=== PATIENT | male | born 1940 | race Caucasian/White ===

== ENCOUNTER 2024-02-20 20:04 | Inpatient (IN) | payer BC ==
[~2024-02-20] VITALS: Ht 182.9 cm; Wt 109.3 kg
[2024-02-20] MEDS ORDERED: LACT1CAP61 PO (20:27)
[2024-02-20] MEDS ORDERED: METO-357 PO (20:27)
[2024-02-20] MEDS ORDERED: FOLI1TAB27 PO (20:27)
[2024-02-20] MEDS ORDERED: LOPE-195 PO (20:27)
[2024-02-20] MEDS ORDERED: HYDR-4077 PO (20:27)
[2024-02-20] MEDS ORDERED: TAMS-3 PO (20:27)
[2024-02-20] MEDS ORDERED: LOSA25TA27 PO (20:27)
[2024-02-20] MEDS ORDERED: GABA-532 PO (20:27)
[2024-02-20] MEDS ORDERED: ASPI81TA31 PO (20:27)
[2024-02-20] MEDS ORDERED: ATOR80TA PO (20:27)
[2024-02-20] MEDS ORDERED: ACET-3117 PO (20:27)
[2024-02-20] MEDS ORDERED: POLY250017 PO (20:41)
[2024-02-20] MEDS ORDERED: FINA5TAB3 PO (20:41)
[2024-02-20] MEDS ORDERED: RIVA20TA PO (20:41)
[2024-02-20] MEDS ORDERED: ZINC56.713 TP (20:41)
[2024-02-20 21:08] LABS: BASOPHILS # (AUTO) 0.1 K/UL (0.0-0.2); BASOPHILS % (AUTO) 0.5 % (0.0-2.0); EOSINOPHILS % (AUTO) 0.3 % (0.0-7.0); HEMATOCRIT 43.9 % (36.7-47.1); HEMOGLOBIN 14.8 g/dL (12.5-16.3); LYMPHOCYTES # (AUTO) 1.1 K/uL (0.8-4.8); LYMPHOCYTES % (AUTO) 7.9 % (20.5-51.5); MEAN CORPUSCULAR HGB CONC 34 g/dL (32.5-36.3); MEAN CORPUSCULAR VOLUME 86.2 fL (73.0-96.2); NEUTROPHILS # (AUTO) 11.9 K/uL (1.8-8.9); NEUTROPHILS % (AUTO) 84.3 % (38.5-71.5); PLATELET COUNT (AUTO) 168 K/uL (152-348); RED CELL DISTRIBUTION WIDTH 15.4 % (12.1-16.2); WHITE BLOOD COUNT (AUTO) 14.1 K/uL (3.6-10.2)
[2024-02-20 21:11] LABS: DIFFERENTIAL COMMENT 1
[2024-02-20] MEDS ORDERED: CEFTRIAXONE 1 G VIAL ONE (21:17)
[2024-02-20 21:30] LABS: ALANINE AMINOTRANSFERASE 13 U/L (16-63); ALBUMIN 3.5 g/dL (3.4-5.0); ALKALINE PHOSPHATASE 106 U/L (50-136); ASPARTATE AMINOTRANSFERASE < 5 U/L (15-37); BILIRUBIN,DIRECT 0.3 mg/dL (0.0-0.2); CARBON DIOXIDE 31 mmol/L (21-32); CHLORIDE 99 mmol/L (98-107); CREATININE 0.8 mg/dL (0.6-1.3); GLUCOSE 145 mg/dL (74-106); NT-PRO BNP 938 pg/mL (0-125); POTASSIUM 4.6 mmol/L (3.5-5.1); SODIUM SERUM 136 mmol/L (136-145); TOTAL PROTEIN, SERUM 7.5 g/dL (6.4-8.2); UREA NITROGEN, BLOOD 9 mg/dL (7-18)
[2024-02-20] MEDS: CEFTRIAXONE 2 G in IV DEXTROSE 5% 100 ML IV ONE (21:32)
[2024-02-20 22:40] LABS: *BILIRUBIN,URIN NEGATIVE (NEGATIVE); *BLOOD, URINE NEGATIVE (NEGATIVE); *CLARITY,URINE CLEAR (CLEAR); *COLOR,URINE YELLOW (YELLOW); *KETONES,URINE NEGATIVE (NEGATIVE); *PROTEIN,URINE 2+ (NEGATIVE); LEUKOCYTE ESTERASE ,URINE 1+ (NEGATIVE); NITRITE, URINE POSITIVE (NEGATIVE); PH,URINE >=9.0 (5.0-8.0); UGLUCOSE NEGATIVE (NEGATIVE)
[2024-02-20] MEDS: IV NORMAL SALINE 1000 ML BAG IV ONE (22:42)
[2024-02-20 23:09] LABS: BACTERIA,URINE MANY /HPF (NONE SEEN)
[2024-02-20 23:10] LABS: SQUAMOUS EPITHELIAL CELL,UR FEW /HPF (NONE SEEN)
[2024-02-20 23:17] LABS: RBC,URINE 0-3 /HPF (0-3)
[2024-02-20 23:18] LABS: URIC ACID CRYSTALS,URINE MODERATE /HPF (NONE SEEN)
[2024-02-20 23:26] LABS: URINE AMORPHOUS URATE MODERATE /HPF
[2024-02-21] VITALS (8 sets, daily range): BP systolic 104–155; BP diastolic 62–84; TEMP 97.3–99.3; O2SAT 89–99
[2024-02-21] MEDS ORDERED: MAGNESIUM HYDROXIDE 30 ML LIQUID UDC PO PRN (00:15)
[2024-02-21] MEDS ORDERED: ONDANSETRON 4 MG/2 ML VIAL IV PRN (00:15)
[2024-02-21] MEDS ORDERED: ACETAMINOPHEN 325 MG TABLET PO PRN (00:15)
[2024-02-21] MEDS ORDERED: IV NS 1000 ML 1,000 ML IV PRN (00:15)
[2024-02-21] MEDS: IV NS 1000 ML 1,000 ML IV ONE (00:39)
[2024-02-21] MEDS ORDERED: MIRALAX 17 GM POWD.PACK PO PRN (01:30)
[2024-02-21] MEDS: GABAPENTIN 300 MG CAPSULE PO SCH (06:20)
[2024-02-21] MEDS: METOPROLOL TARTRATE 5 MG/5 ML VIAL IVP ONE (08:00)
[2024-02-21] MEDS: FOLIC ACID 1 MG TABLET PO SCH (08:18)
[2024-02-21] MEDS: FINASTERIDE 5 MG TABLET PO SCH (08:18)
[2024-02-21] MEDS: CULTURELLE CAPSULE PO SCH (08:18)
[2024-02-21] MEDS: ASPIRIN EC 81 MG TABLET.DR PO SCH (08:18)
[2024-02-21] MEDS: METOPROLOL SUCCINATE XL 50 MG TAB.SR.24H PO SCH (08:19)
[2024-02-21] MEDS: AMIODARONE HCL IV 150 MG in IV DEXTROSE 5% 100 ML IV ONE (08:54)
[2024-02-21] MEDS ORDERED: ASPIRIN 81 MG TAB.CHEW PO SCH (09:00)
[2024-02-21] MEDS ORDERED: hydrALAZINE HCL 50 MG TABLET PO SCH (09:00)
[2024-02-21] MEDS ORDERED: GABAPENTIN 100 MG CAPSULE PO SCH (09:00)
[2024-02-21] MEDS ORDERED: LOSARTAN POTASSIUM 25 MG TABLET PO SCH (09:00)
[2024-02-21] MEDS: AMIODARONE HCL IV 450 MG in IV DEXTROSE 5% 250 ML IV PRN (09:12)
[2024-02-21] MEDS ORDERED: SWABABLE VALVE TRANSFER SET EA MC ONE (09:34)
[2024-02-21] MEDS ORDERED: IOHEXOL 350 100 ML INFUS..BTL ONE (09:34)
[2024-02-21] MEDS ORDERED: IV NORMAL SALINE 250 ML IV ONE (09:34)
[2024-02-21 10:01] LABS: BASOPHILS # (AUTO) 0.1 K/UL (0.0-0.2); BASOPHILS % (AUTO) 0.7 % (0.0-2.0); HEMATOCRIT 40.9 % (36.7-47.1); HEMOGLOBIN 13.9 g/dL (12.5-16.3); LYMPHOCYTES # (AUTO) 1.2 K/uL (0.8-4.8); LYMPHOCYTES % (AUTO) 10.4 % (20.5-51.5); MEAN CORPUSCULAR HEMOGLOBIN 29.5 uug (23.8-33.4); MEAN CORPUSCULAR HGB CONC 34 g/dL (32.5-36.3); MEAN CORPUSCULAR VOLUME 86.6 fL (73.0-96.2); MONOCYTES # (AUTO) 1.2 K/uL (0.1-1.30); MONOCYTES % (AUTO) 10.3 % (0.0-11.0); NEUTROPHILS # (AUTO) 9.3 K/uL (1.8-8.9); NEUTROPHILS % (AUTO) 78.6 % (38.5-71.5); PLATELET COUNT (AUTO) 169 K/uL (152-348); RED BLOOD CELL COUNT(AUTO) 4.72 MIL/uL (4.06-5.63); RED CELL DISTRIBUTION WIDTH 15.2 % (12.1-16.2); WHITE BLOOD COUNT (AUTO) 11.8 K/uL (3.6-10.2)
[2024-02-21 10:11] LABS: DIFFERENTIAL COMMENT 1
[2024-02-21 10:14] LABS: CALCIUM 8.2 mg/dL (8.5-10.1); CARBON DIOXIDE 27 mmol/L (21-32); CHLORIDE 99 mmol/L (98-107); CREATININE 0.6 mg/dL (0.6-1.3); GLUCOSE 197 mg/dL (74-106); SODIUM SERUM 133 mmol/L (136-145); UREA NITROGEN, BLOOD 14 mg/dL (7-18)
[2024-02-21 10:20] LABS: ALANINE AMINOTRANSFERASE 11 U/L (16-63); ALBUMIN 2.8 g/dL (3.4-5.0); ALKALINE PHOSPHATASE 88 U/L (50-136); ASPARTATE AMINOTRANSFERASE < 5 U/L (15-37); CHOLESTEROL 99 mg/dL (<200); HDL CHOLESTEROL 48 mg/dL (40-60); MAGNESIUM 1.9 mg/dL (1.8-2.4); PHOSPHOROUS 3.8 mg/dL (2.5-4.9); TOTAL PROTEIN, SERUM 6.8 g/dL (6.4-8.2); TRIGLYCERIDES 29 MG/DL (30-150)
[2024-02-21 10:29] LABS: THYROID STIMULATING HORMONE 0.825 mIU/mL (0.358-3.740)
[2024-02-21] MEDS ORDERED: LEVALBUTEROL HCL NEB 0.63 MG/3 ML NEBU NEB PRN (12:30)
[2024-02-21 12:52] LABS: ABG BASE EXCESS -1.2 mmol/L (-2.0-2.0); ABG HCO3 27.1 mmol/L (22.0-26.0); ABG PCO2 60.3 mmHg (35.0-48.0); ABG PO2 64.8 mmHg (75.0-100.0); ABG SITE LEFT RADIAL; ABG TOTAL HEMOGLOBIN 15.1 G/dL (14.0-18.0); AaDO2 89.4 mmHg; COHb 1.2 % (0.0-3.9); MetHb 0.3 % (0.0-1.5); O2Hb 89.3 % (94.0-97.0)
[2024-02-21] MEDS: ACETYLCYSTEINE 10% 4ML VIAL NEB SCH (13:17)
[2024-02-21] MEDS: LEVALBUTEROL HCL NEB 0.63 MG/3 ML NEBU NEB SCH (13:18)
[2024-02-21] MEDS: IPRATROPIUM BROMIDE 0.5 MG/2.5 ML NEBU NEB SCH (13:18)
[2024-02-21] MEDS: FUROSEMIDE 40 MG/4 ML VIAL IV ONE (13:26)
[2024-02-21] MEDS ORDERED: IPRATROPIUM BROMIDE 0.5 MG/2.5 ML NEBU NEB SCH (13:30)
[2024-02-21 14:14] LABS: ABG BASE EXCESS -1.2 mmol/L (-2.0-2.0); ABG HCO3 26.4 mmol/L (22.0-26.0); ABG PCO2 55.5 mmHg (35.0-48.0); ABG PH 7.295 (7.340-7.440); ABG PO2 452.6 mmHg (75.0-100.0); ABG SITE LEFT RADIAL; AaDO2 99.8 mmHg; COHb 0.8 % (0.0-3.9); MetHb 0.4 % (0.0-1.5); O2Hb 98.8 % (94.0-97.0)
[2024-02-21] MEDS ORDERED: RIVAROXABAN 10 MG TABLET PO SCH ×2 (17:00)
[2024-02-21] MEDS ORDERED: DEXTROSE 50% 50 ML DISP.SYRIN IV PRN (17:15)
[2024-02-21] MEDS ORDERED: INSULIN REGULAR, HUMAN 300 UNIT/3 ML VIAL SQ PRN (17:15)
[2024-02-21] MEDS: BLOOD SUGAR DIAGNOSTIC 1 EACH STRIP VI SCH (17:49)
[2024-02-21] MEDS: PANTOPRAZOLE SODIUM 40 MG VIAL IV SCH (17:50)
[2024-02-21 18:07] LABS: ABG BASE EXCESS 1.8 mmol/L (-2.0-2.0); ABG HCO3 28.2 mmol/L (22.0-26.0); ABG PO2 141.2 mmHg (75.0-100.0); ABG SITE LEFT RADIAL; AaDO2 98.7 mmHg; COHb 0.7 % (0.0-3.9); MetHb 0.3 % (0.0-1.5)
[2024-02-21] MEDS: NORMAL SALINE IV ONE (21:00)
[2024-02-21] MEDS ORDERED: CEFTRIAXONE 1 G in IV DEXTROSE 5% 50 ML IV SCH (21:00)
[2024-02-21] MEDS ORDERED: CEFTRIAXONE 2 G in IV DEXTROSE 5% 100 ML IV SCH (21:00)
[2024-02-21] MEDS: VANCOMYCIN HCL IV ONE (21:00)
[2024-02-21] MEDS ORDERED: PIPERACILLIN SODIUM/TAZOBACTAM 3.375 G in IV NORMAL SALINE 50 ML IV ONE ×3 (21:00)
[2024-02-21] MEDS ORDERED: TAMSULOSIN HCL 0.4 MG CAP.SR.24H PO SCH (21:00)
[2024-02-21] MEDS ORDERED: ATORVASTATIN 40 MG TABLET PO SCH (21:00)
[2024-02-21] MEDS: ENOXAPARIN SODIUM 120 MG/0.8 ML SYRINGE SQ SCH (21:52)
[2024-02-21] MEDS ORDERED: VANCOMYCIN HCL 500 MG VIAL ONE (21:58)
[2024-02-21] MEDS ORDERED: VANCOMYCIN 1000 MG VIAL ONE (21:58)
[2024-02-21] MEDS ORDERED: PIPERACILLIN SODIUM/TAZOBACTAM 3.375 G in IV DEXTROSE 5% 50 ML IV SCH (22:00)
[2024-02-21] MEDS ORDERED: LEVALBUTEROL HCL NEB 0.63 MG/3 ML NEBU ONE (23:07)
[2024-02-21] MEDS ORDERED: ACETYLCYSTEINE 20% 800 MG/4 ML VIAL ONE (23:08)
[2024-02-21] MEDS ORDERED: IPRATROPIUM BROMIDE 0.5 MG/2.5 ML NEBU ONE (23:08)
[2024-02-22] VITALS (9 sets, daily range): BP systolic 119–150; BP diastolic 75–82; TEMP 97.6–98.1; O2SAT 96–100
[2024-02-22] MEDS ORDERED: PIPERACILLIN/TAZOBACTAM/D5W 50 ML IV ONE (00:27)
[2024-02-22] MEDS: PIPERACILLIN SODIUM/TAZOBACTAM 3.375 G in IV NORMAL SALINE 50 ML IV ONE (00:34)
[2024-02-22] MEDS: LORAZEPAM 2 MG/1 ML VIAL IV PRN (00:51)
[2024-02-22] MEDS ORDERED: IPRATROPIUM BROMIDE 0.5 MG/2.5 ML NEBU ONE (03:22)
[2024-02-22] MEDS ORDERED: LEVALBUTEROL HCL NEB 0.63 MG/3 ML NEBU ONE (03:22)
[2024-02-22] MEDS ORDERED: PIPERACILLIN SODIUM/TAZOBACTAM 3.375 G in IV NORMAL SALINE 50 ML IV ONE (06:00)
[2024-02-22] MEDS: REMEDY ESSENTIAL ZINC PASTE 113 GM TP PRN (08:34)
[2024-02-22] MEDS: PIPERACILLIN SODIUM/TAZOBACTAM 3.375 G in IV DEXTROSE 5% 50 ML IV SCH (08:39)
[2024-02-22] MEDS: VANCOMYCIN IV 1,250 MG in IV DEXTROSE 5% 250 ML IV SCH (09:30)
[2024-02-22] MEDS ORDERED: PIPERACILLIN SODIUM/TAZOBACTAM 3.375 G in IV DEXTROSE 5% 50 ML IV SCH (12:00)
[2024-02-22 12:43] LABS: BASOPHILS % (AUTO) 0.8 % (0.0-2.0); EOSINOPHILS # (AUTO) 0.1 K/uL (0.0-0.7); EOSINOPHILS % (AUTO) 1.1 % (0.0-7.0); HEMATOCRIT 37.4 % (36.7-47.1); HEMOGLOBIN 12.7 g/dL (12.5-16.3); LYMPHOCYTES % (AUTO) 18.6 % (20.5-51.5); MEAN CORPUSCULAR HEMOGLOBIN 29.4 uug (23.8-33.4); MEAN CORPUSCULAR HGB CONC 34 g/dL (32.5-36.3); MEAN CORPUSCULAR VOLUME 86.5 fL (73.0-96.2); MONOCYTES # (AUTO) 0.6 K/uL (0.1-1.30); MONOCYTES % (AUTO) 11.3 % (0.0-11.0); NEUTROPHILS # (AUTO) 3.8 K/uL (1.8-8.9); NEUTROPHILS % (AUTO) 68.2 % (38.5-71.5); PLATELET COUNT (AUTO) 135 K/uL (152-348); RED BLOOD CELL COUNT(AUTO) 4.32 MIL/uL (4.06-5.63); RED CELL DISTRIBUTION WIDTH 15.3 % (12.1-16.2); WHITE BLOOD COUNT (AUTO) 5.6 K/uL (3.6-10.2)
[2024-02-22 12:58] LABS: ALANINE AMINOTRANSFERASE 11 U/L (16-63); ALBUMIN 2.7 g/dL (3.4-5.0); ALKALINE PHOSPHATASE 75 U/L (50-136); ASPARTATE AMINOTRANSFERASE < 5 U/L (15-37); BILIRUBIN,TOTAL 0.8 mg/dL (0.2-1.0); CALCIUM 8.6 mg/dL (8.5-10.1); CARBON DIOXIDE 32 mmol/L (21-32); CHLORIDE 100 mmol/L (98-107); CREATININE 0.7 mg/dL (0.6-1.3); GLUCOSE 108 mg/dL (74-106); MAGNESIUM 2.1 mg/dL (1.8-2.4); PHOSPHOROUS 2.8 mg/dL (2.5-4.9); SODIUM SERUM 138 mmol/L (136-145); TOTAL PROTEIN, SERUM 6.5 g/dL (6.4-8.2); UREA NITROGEN, BLOOD 15 mg/dL (7-18); URIC ACID 4.1 mg/dL (3.5-7.2)
[2024-02-22 13:02] LABS: DIFFERENTIAL COMMENT 1
[2024-02-22] MEDS: PIPERACILLIN SODIUM/TAZOBACTAM 3.375 G in IV DEXTROSE 5% 100 ML IV SCH (17:36)
[2024-02-22 17:50] LABS: *BILIRUBIN,URIN NEGATIVE (NEGATIVE); *BLOOD, URINE 2+ (NEGATIVE); *CLARITY,URINE CLEAR (CLEAR); *COLOR,URINE YELLOW (YELLOW); *KETONES,URINE NEGATIVE (NEGATIVE); *PROTEIN,URINE 1+ (NEGATIVE); *UROBILINOGEN,URINE 0.2 E.U./dl (NORMAL); LEUKOCYTE ESTERASE ,URINE TRACE (NEGATIVE); NITRITE, URINE NEGATIVE (NEGATIVE); UGLUCOSE NEGATIVE (NEGATIVE)
[2024-02-22 18:27] LABS: BACTERIA,URINE MODERATE /HPF (NONE SEEN); SQUAMOUS EPITHELIAL CELL,UR MODERATE /HPF (NONE SEEN)
[2024-02-22] MEDS: SODIUM CHLORIDE 3% FOR INHALATION 15 ML NEBU IH ONE (20:15)
[2024-02-23] VITALS (16 sets, daily range): BP systolic 126–168; BP diastolic 64–113; TEMP 97–98.9; O2SAT 89–99
[2024-02-23 09:11] LABS: BASOPHILS % (AUTO) 0.7 % (0.0-2.0); EOSINOPHILS # (AUTO) 0.1 K/uL (0.0-0.7); EOSINOPHILS % (AUTO) 1.2 % (0.0-7.0); HEMATOCRIT 35.6 % (36.7-47.1); HEMOGLOBIN 12.3 g/dL (12.5-16.3); LYMPHOCYTES % (AUTO) 17.1 % (20.5-51.5); MEAN CORPUSCULAR HEMOGLOBIN 29.6 uug (23.8-33.4); MEAN CORPUSCULAR HGB CONC 35 g/dL (32.5-36.3); MEAN CORPUSCULAR VOLUME 85.7 fL (73.0-96.2); MONOCYTES # (AUTO) 0.6 K/uL (0.1-1.30); NEUTROPHILS # (AUTO) 4.1 K/uL (1.8-8.9); PLATELET COUNT (AUTO) 153 K/uL (152-348); RED BLOOD CELL COUNT(AUTO) 4.16 MIL/uL (4.06-5.63); WHITE BLOOD COUNT (AUTO) 5.7 K/uL (3.6-10.2)
[2024-02-23 09:13] LABS: DIFFERENTIAL COMMENT 1
[2024-02-23] MEDS: METOPROLOL TARTRATE 50 MG TABLET PO SCH (09:14)
[2024-02-23 09:25] LABS: CALCIUM 8.5 mg/dL (8.5-10.1); CREATININE 0.6 mg/dL (0.6-1.3); POTASSIUM 3.4 mmol/L (3.5-5.1)
[2024-02-23 09:26] LABS: PHOSPHOROUS 2.4 mg/dL (2.5-4.9); VANCOMYCIN,TROUGH 15.3 ug/mL (10.0-20.0)
[2024-02-23] MEDS: ACETAMINOPHEN 650 MG SUPP.RECT RC PRN (10:31)
[2024-02-23] MEDS: ACETYLCYSTEINE 10% 4ML VIAL NEB SCH (15:06)
[2024-02-23] MEDS: IPRATROPIUM BROMIDE 0.5 MG/2.5 ML NEBU NEB SCH (15:06)
[2024-02-23] MEDS: POTASSIUM PHOSPHATE MM 15 MMOL in IV NORMAL SALINE 250 ML IV ONE (16:20)
[2024-02-24] VITALS (38 sets, daily range): BP systolic 124–202; BP diastolic 80–131; TEMP 97.6–98.8; O2SAT 91–100
[2024-02-24 05:15] LABS: BASOPHILS # (AUTO) 0.1 K/UL (0.0-0.2); BASOPHILS % (AUTO) 0.8 % (0.0-2.0); EOSINOPHILS # (AUTO) 0.1 K/uL (0.0-0.7); EOSINOPHILS % (AUTO) 1.4 % (0.0-7.0); HEMATOCRIT 37.9 % (36.7-47.1); LYMPHOCYTES # (AUTO) 1.9 K/uL (0.8-4.8); LYMPHOCYTES % (AUTO) 20.2 % (20.5-51.5); MEAN CORPUSCULAR HEMOGLOBIN 29.5 uug (23.8-33.4); MEAN CORPUSCULAR HGB CONC 34 g/dL (32.5-36.3); MEAN CORPUSCULAR VOLUME 85.8 fL (73.0-96.2); MONOCYTES # (AUTO) 0.9 K/uL (0.1-1.30); MONOCYTES % (AUTO) 9.4 % (0.0-11.0); NEUTROPHILS # (AUTO) 6.5 K/uL (1.8-8.9); NEUTROPHILS % (AUTO) 68.2 % (38.5-71.5); PLATELET COUNT (AUTO) 142 K/uL (152-348); RED BLOOD CELL COUNT(AUTO) 4.42 MIL/uL (4.06-5.63); RED CELL DISTRIBUTION WIDTH 14.8 % (12.1-16.2); WHITE BLOOD COUNT (AUTO) 9.6 K/uL (3.6-10.2)
[2024-02-24 05:29] LABS: CALCIUM 8.3 mg/dL (8.5-10.1); CREATININE 0.6 mg/dL (0.6-1.3); PHOSPHOROUS 3.2 mg/dL (2.5-4.9); POTASSIUM 3.4 mmol/L (3.5-5.1)
[2024-02-24 07:33] LABS: DIFFERENTIAL COMMENT 1
[2024-02-24] MEDS: METOPROLOL TARTRATE 50 MG TABLET PO SCH (09:00)
[2024-02-24] MEDS: OLANZAPINE 10 MG VIAL IM PRN (09:35)
[2024-02-24] MEDS: ENOXAPARIN SODIUM 120 MG/0.8 ML SYRINGE SQ SCH (10:24)
[2024-02-24 11:56] LABS: BAND % (MANUAL) 1 % (0-10); LYMPHOCYTES % (MANUAL) 21 % (20-40); MONOCYTES % (MANUAL) 10 % (2-10); NEUTROPHILS % (MANUAL) 68 % (42-75); PLATELET ESTIMATE DECREASED
[2024-02-24 11:57] LABS: ANISOCYTOSIS 1+; OVALOCYTES 1+
[2024-02-24] MEDS: POTASSIUM CHLORIDE 50 ML IV SCH (12:12)
[2024-02-24] MEDS: IPRATROPIUM BROMIDE 0.5 MG/2.5 ML NEBU NEB SCH (12:23)
[2024-02-24] MEDS: LEVALBUTEROL HCL NEB 0.63 MG/3 ML NEBU NEB SCH (12:23)
[2024-02-24] MEDS: hydrALAZINE HCL 20 MG/1 ML VIAL IV PRN (13:06)
[2024-02-24] MEDS: OLANZAPINE 10 MG VIAL IM ONE (14:23)
[2024-02-24] MEDS: METOPROLOL TARTRATE 5 MG/5 ML VIAL IVP PRN (17:40)
[2024-02-24] MEDS: DILTIAZEM HCL IV 125 MG in IV NORMAL SALINE 100 ML IV PRN (18:11)
[2024-02-24] MEDS: ACETYLCYSTEINE 10% 4ML VIAL NEB SCH (20:41)
[2024-02-24] MEDS ORDERED: DEXTROSE 5% IV PRN (23:00)
[2024-02-24] MEDS ORDERED: NITROPRUSSIDE SODIUM IV PRN (23:00)
[2024-02-25] VITALS (43 sets, daily range): BP systolic 123–191; BP diastolic 67–177; TEMP 98.1–98.9; O2SAT 90–96
[2024-02-25] MEDS ORDERED: NOREPINEPHRINE BITARTRATE 8 MG in IV NORMAL SALINE 242 ML IV PRN (02:15)
[2024-02-25] MEDS: DIGOXIN 500 MCG/2 ML AMP IV ONE (07:45)
[2024-02-25] MEDS: METOPROLOL TARTRATE 5 MG/5 ML VIAL IVP PRN (10:10)
[2024-02-25 14:33] LABS: BASOPHILS # (AUTO) 0.1 K/UL (0.0-0.2); BASOPHILS % (AUTO) 1.2 % (0.0-2.0); EOSINOPHILS % (AUTO) 0.1 % (0.0-7.0); HEMATOCRIT 41.4 % (36.7-47.1); LYMPHOCYTES # (AUTO) 1.3 K/uL (0.8-4.8); LYMPHOCYTES % (AUTO) 11.1 % (20.5-51.5); MEAN CORPUSCULAR HEMOGLOBIN 29.1 uug (23.8-33.4); MEAN CORPUSCULAR HGB CONC 34 g/dL (32.5-36.3); MEAN CORPUSCULAR VOLUME 86.2 fL (73.0-96.2); NEUTROPHILS # (AUTO) 9.7 K/uL (1.8-8.9); NEUTROPHILS % (AUTO) 79.6 % (38.5-71.5); PLATELET COUNT (AUTO) 163 K/uL (152-348); RED BLOOD CELL COUNT(AUTO) 4.81 MIL/uL (4.06-5.63); RED CELL DISTRIBUTION WIDTH 15.3 % (12.1-16.2); WHITE BLOOD COUNT (AUTO) 12.1 K/uL (3.6-10.2)
[2024-02-25 14:48] LABS: DIFFERENTIAL COMMENT 1
[2024-02-25 15:05] LABS: ALBUMIN 2.7 g/dL (3.4-5.0); BILIRUBIN,TOTAL 1.1 mg/dL (0.2-1.0); CALCIUM 8.3 mg/dL (8.5-10.1); CREATININE 1.1 mg/dL (0.6-1.3); MAGNESIUM 2.1 mg/dL (1.8-2.4); POTASSIUM 3.6 mmol/L (3.5-5.1); TOTAL PROTEIN, SERUM 6.6 g/dL (6.4-8.2)
[2024-02-26] VITALS (43 sets, daily range): BP systolic 89–167; BP diastolic 24–116; TEMP 97.8–98.9; O2SAT 67–100
[2024-02-26 05:43] LABS: BASOPHILS # (AUTO) 0.1 K/UL (0.0-0.2); BASOPHILS % (AUTO) 0.3 % (0.0-2.0); EOSINOPHILS % (AUTO) 0.3 % (0.0-7.0); HEMATOCRIT 44.2 % (36.7-47.1); HEMOGLOBIN 14.8 g/dL (12.5-16.3); LYMPHOCYTES % (AUTO) 13.3 % (20.5-51.5); MEAN CORPUSCULAR HEMOGLOBIN 29.4 uug (23.8-33.4); MEAN CORPUSCULAR HGB CONC 33 g/dL (32.5-36.3); MONOCYTES # (AUTO) 1.4 K/uL (0.1-1.30); MONOCYTES % (AUTO) 9.6 % (0.0-11.0); NEUTROPHILS # (AUTO) 11.5 K/uL (1.8-8.9); NEUTROPHILS % (AUTO) 76.5 % (38.5-71.5); PLATELET COUNT (AUTO) 97 K/uL (152-348); RED BLOOD CELL COUNT(AUTO) 5.03 MIL/uL (4.06-5.63); RED CELL DISTRIBUTION WIDTH 15.2 % (12.1-16.2); WHITE BLOOD COUNT (AUTO) 15.1 K/uL (3.6-10.2)
[2024-02-26 06:05] LABS: DIFFERENTIAL COMMENT 1
[2024-02-26 07:56] LABS: CALCIUM 8.2 mg/dL (8.5-10.1); CREATININE 1.2 mg/dL (0.6-1.3); MAGNESIUM 2.3 mg/dL (1.8-2.4); PHOSPHOROUS 4.2 mg/dL (2.5-4.9); POTASSIUM 3.3 mmol/L (3.5-5.1)
[2024-02-26 08:45] LABS: LYMPHOCYTES % (MANUAL) 15 % (20-40); MONOCYTES % (MANUAL) 7 % (2-10); NEUTROPHILS % (MANUAL) 78 % (42-75); PLATELET ESTIMATE DECREASED
[2024-02-26 08:46] LABS: ANISOCYTOSIS 1+
[2024-02-26] MEDS ORDERED: POTASSIUM CHLORIDE 20 MEQ TAB.PRT.SR PO ONE (11:30)
[2024-02-26] MEDS: POTASSIUM CHLORIDE 50 ML IV SCH (12:02)
[2024-02-26] MEDS ORDERED: MEROPENEM 1 G in IV NORMAL SALINE 100 ML IV SCH (14:00)
[2024-02-26] MEDS: MEROPENEM 1 G in IV NORMAL SALINE 100 ML IV SCH (14:36)
[2024-02-26] MEDS ORDERED: IPRATROPIUM BROMIDE 0.5 MG/2.5 ML NEBU ONE (23:28)
[2024-02-26] MEDS ORDERED: LEVALBUTEROL HCL NEB 0.63 MG/3 ML NEBU ONE (23:29)
[2024-02-27] VITALS (43 sets, daily range): BP systolic 87–179; BP diastolic 44–127; TEMP 97–98.4; O2SAT 93–100
[2024-02-27 07:42] LABS: BASOPHILS # (AUTO) 0.1 K/UL (0.0-0.2); BASOPHILS % (AUTO) 0.8 % (0.0-2.0); EOSINOPHILS # (AUTO) 0.3 K/uL (0.0-0.7); EOSINOPHILS % (AUTO) 2.7 % (0.0-7.0); HEMATOCRIT 38.3 % (36.7-47.1); HEMOGLOBIN 12.9 g/dL (12.5-16.3); LYMPHOCYTES # (AUTO) 1.2 K/uL (0.8-4.8); LYMPHOCYTES % (AUTO) 11.6 % (20.5-51.5); MEAN CORPUSCULAR HEMOGLOBIN 29.6 uug (23.8-33.4); MEAN CORPUSCULAR HGB CONC 34 g/dL (32.5-36.3); MONOCYTES # (AUTO) 1.2 K/uL (0.1-1.30); NEUTROPHILS # (AUTO) 7.9 K/uL (1.8-8.9); NEUTROPHILS % (AUTO) 73.9 % (38.5-71.5); PLATELET COUNT (AUTO) 151 K/uL (152-348); RED BLOOD CELL COUNT(AUTO) 4.36 MIL/uL (4.06-5.63); WHITE BLOOD COUNT (AUTO) 10.7 K/uL (3.6-10.2)
[2024-02-27 07:43] LABS: ALANINE AMINOTRANSFERASE 14 U/L (16-63); ALBUMIN 2.3 g/dL (3.4-5.0); ALKALINE PHOSPHATASE 62 U/L (50-136); ASPARTATE AMINOTRANSFERASE 15 U/L (15-37); BILIRUBIN,TOTAL 0.8 mg/dL (0.2-1.0); CALCIUM 8.2 mg/dL (8.5-10.1); CARBON DIOXIDE 32 mmol/L (21-32); CHLORIDE 109 mmol/L (98-107); CREATININE 1.3 mg/dL (0.6-1.3); DIFFERENTIAL COMMENT 1; GLUCOSE 88 mg/dL (74-106); MAGNESIUM 2.4 mg/dL (1.8-2.4); PHOSPHOROUS 4.5 mg/dL (2.5-4.9); SODIUM SERUM 146 mmol/L (136-145); TOTAL PROTEIN, SERUM 6.1 g/dL (6.4-8.2); UREA NITROGEN, BLOOD 14 mg/dL (7-18)
[2024-02-27 07:46] LABS: POTASSIUM 3.9 mmol/L (3.5-5.1)
[2024-02-27 09:41] LABS: ABG BASE EXCESS 1.8 mmol/L (-2.0-2.0); ABG HCO3 24.7 mmol/L (22.0-26.0); ABG PCO2 33.9 mmHg (35.0-48.0); ABG PH 7.481 (7.340-7.440); ABG PO2 67.3 mmHg (75.0-100.0); ABG SITE LEFT RADIAL; ABG TOTAL HEMOGLOBIN 14.4 G/dL (14.0-18.0); AaDO2 94.8 mmHg; COHb 0.8 % (0.0-3.9); MetHb 0.2 % (0.0-1.5); O2Hb 93.2 % (94.0-97.0)
[2024-02-27] MEDS ORDERED: VITAMINS A AND D OINT 42 GM TUBE TP PRN (10:15)
[2024-02-27] MEDS ORDERED: VITAMINS A AND D 5 GM UD PKT TP PRN (10:30)
[2024-02-28] VITALS (23 sets, daily range): BP systolic 89–153; BP diastolic 34–119; TEMP 97.6–98.4; O2SAT 89–98
[2024-02-28] MEDS ORDERED: MEROPENEM 1GM/NS 100ML IVPB **ER PYXIS ONLY IV ONE (00:56)
[2024-02-28] MEDS ORDERED: DILTIAZEM HCL 25 MG IV ONE (02:14)
[2024-02-28 06:00] LABS: ABG HCO3 26.9 mmol/L (22.0-26.0); ABG PCO2 43.2 mmHg (35.0-48.0); ABG PH 7.412 (7.340-7.440); ABG PO2 78.8 mmHg (75.0-100.0); ABG SITE LEFT RADIAL; ABG TOTAL HEMOGLOBIN 13.9 G/dL (14.0-18.0); AaDO2 95.7 mmHg; COHb 0.7 % (0.0-3.9); MetHb 0.3 % (0.0-1.5); O2Hb 94.9 % (94.0-97.0)
[2024-02-28 08:25] LABS: BASOPHILS # (AUTO) 0.1 K/UL (0.0-0.2); BASOPHILS % (AUTO) 0.5 % (0.0-2.0); EOSINOPHILS # (AUTO) 0.1 K/uL (0.0-0.7); EOSINOPHILS % (AUTO) 0.4 % (0.0-7.0); HEMATOCRIT 40.1 % (36.7-47.1); HEMOGLOBIN 13.5 g/dL (12.5-16.3); LYMPHOCYTES # (AUTO) 1.6 K/uL (0.8-4.8); LYMPHOCYTES % (AUTO) 11.4 % (20.5-51.5); MEAN CORPUSCULAR HEMOGLOBIN 29.3 uug (23.8-33.4); MEAN CORPUSCULAR HGB CONC 34 g/dL (32.5-36.3); MEAN CORPUSCULAR VOLUME 86.9 fL (73.0-96.2); MONOCYTES % (AUTO) 7.4 % (0.0-11.0); NEUTROPHILS % (AUTO) 80.3 % (38.5-71.5); PLATELET COUNT (AUTO) 187 K/uL (152-348); RED BLOOD CELL COUNT(AUTO) 4.62 MIL/uL (4.06-5.63); RED CELL DISTRIBUTION WIDTH 15.1 % (12.1-16.2); WHITE BLOOD COUNT (AUTO) 13.7 K/uL (3.6-10.2)
[2024-02-28 08:26] LABS: DIFFERENTIAL COMMENT 1
[2024-02-28 08:48] LABS: CALCIUM 8.4 mg/dL (8.5-10.1); CARBON DIOXIDE 31 mmol/L (21-32); CHLORIDE 108 mmol/L (98-107); CREATININE 1.5 mg/dL (0.6-1.3); GLUCOSE 103 mg/dL (74-106); MAGNESIUM 2.3 mg/dL (1.8-2.4); PHOSPHOROUS 2.9 mg/dL (2.5-4.9); POTASSIUM 3.3 mmol/L (3.5-5.1); SODIUM SERUM 149 mmol/L (136-145); UREA NITROGEN, BLOOD 15 mg/dL (7-18)
[2024-02-28] MEDS: DIGOXIN 500 MCG/2 ML AMP IV ONE ×2 (10:48→14:20)
[2024-02-28] MEDS: POTASSIUM CHLORIDE 50 ML IV SCH (12:48)
[2024-02-28] MEDS: VITAL AF 1.2 1,000 ML LIQUID GT PRN (18:57)
[2024-02-28] MEDS: REMEDY ESSENTIAL ZINC PASTE 113 GM TOP SCH (21:48)
[2024-02-29] VITALS (40 sets, daily range): BP systolic 101–173; BP diastolic 50–87; TEMP 97.4–98.6; O2SAT 89–99
[2024-02-29 05:06] LABS: BASOPHILS # (AUTO) 0.1 K/UL (0.0-0.2); BASOPHILS % (AUTO) 0.5 % (0.0-2.0); EOSINOPHILS # (AUTO) 0.1 K/uL (0.0-0.7); EOSINOPHILS % (AUTO) 0.8 % (0.0-7.0); HEMATOCRIT 36.7 % (36.7-47.1); HEMOGLOBIN 12.3 g/dL (12.5-16.3); LYMPHOCYTES # (AUTO) 1.4 K/uL (0.8-4.8); LYMPHOCYTES % (AUTO) 10.7 % (20.5-51.5); MEAN CORPUSCULAR HGB CONC 34 g/dL (32.5-36.3); MEAN CORPUSCULAR VOLUME 86.8 fL (73.0-96.2); MONOCYTES # (AUTO) 0.9 K/uL (0.1-1.30); MONOCYTES % (AUTO) 7.2 % (0.0-11.0); NEUTROPHILS # (AUTO) 10.3 K/uL (1.8-8.9); NEUTROPHILS % (AUTO) 80.8 % (38.5-71.5); PLATELET COUNT (AUTO) 180 K/uL (152-348); RED BLOOD CELL COUNT(AUTO) 4.23 MIL/uL (4.06-5.63); RED CELL DISTRIBUTION WIDTH 14.9 % (12.1-16.2); WHITE BLOOD COUNT (AUTO) 12.7 K/uL (3.6-10.2)
[2024-02-29 05:09] LABS: DIFFERENTIAL COMMENT 1
[2024-02-29 05:19] LABS: CALCIUM 8.3 mg/dL (8.5-10.1); CARBON DIOXIDE 29 mmol/L (21-32); CHLORIDE 111 mmol/L (98-107); CREATININE 1.3 mg/dL (0.6-1.3); GLUCOSE 122 mg/dL (74-106); MAGNESIUM 2.3 mg/dL (1.8-2.4); PHOSPHOROUS 2.1 mg/dL (2.5-4.9); POTASSIUM 3.9 mmol/L (3.5-5.1); SODIUM SERUM 149 mmol/L (136-145); UREA NITROGEN, BLOOD 19 mg/dL (7-18)
[2024-02-29] MEDS: DIGOXIN 125 MCG TABLET PO SCH (10:44)
[2024-02-29] MEDS: NEUTRA PHOS PACKET PO ONE (18:04)
[2024-03-01] VITALS (51 sets, daily range): BP systolic 109–190; BP diastolic 46–128; TEMP 97.8–98.6; O2SAT 89–100
[2024-03-01 05:02] LABS: BASOPHILS % (AUTO) 0.4 % (0.0-2.0); EOSINOPHILS # (AUTO) 0.1 K/uL (0.0-0.7); EOSINOPHILS % (AUTO) 0.9 % (0.0-7.0); HEMATOCRIT 35.6 % (36.7-47.1); HEMOGLOBIN 11.9 g/dL (12.5-16.3); LYMPHOCYTES # (AUTO) 1.4 K/uL (0.8-4.8); LYMPHOCYTES % (AUTO) 12.3 % (20.5-51.5); MEAN CORPUSCULAR HEMOGLOBIN 28.9 uug (23.8-33.4); MEAN CORPUSCULAR HGB CONC 33 g/dL (32.5-36.3); MEAN CORPUSCULAR VOLUME 86.7 fL (73.0-96.2); MONOCYTES # (AUTO) 0.9 K/uL (0.1-1.30); MONOCYTES % (AUTO) 7.3 % (0.0-11.0); NEUTROPHILS # (AUTO) 9.2 K/uL (1.8-8.9); NEUTROPHILS % (AUTO) 79.1 % (38.5-71.5); PLATELET COUNT (AUTO) 181 K/uL (152-348); RED BLOOD CELL COUNT(AUTO) 4.11 MIL/uL (4.06-5.63); RED CELL DISTRIBUTION WIDTH 15.1 % (12.1-16.2); WHITE BLOOD COUNT (AUTO) 11.6 K/uL (3.6-10.2)
[2024-03-01 05:21] LABS: DIFFERENTIAL COMMENT 1
[2024-03-01 05:27] LABS: CARBON DIOXIDE 34 mmol/L (21-32); CHLORIDE 114 mmol/L (98-107); CREATININE 1.4 mg/dL (0.6-1.3); GLUCOSE 137 mg/dL (74-106); MAGNESIUM 2.4 mg/dL (1.8-2.4); PHOSPHOROUS 2.8 mg/dL (2.5-4.9); POTASSIUM 3.4 mmol/L (3.5-5.1); SODIUM SERUM 152 mmol/L (136-145); UREA NITROGEN, BLOOD 25 mg/dL (7-18)
[2024-03-01] MEDS ORDERED: POTASSIUM CHLORIDE 20 MEQ TAB.PRT.SR PO ONE (12:00)
[2024-03-01] MEDS: POTASSIUM CHLORIDE 20 MEQ POWDER PACKET PO ONE (12:17)
[2024-03-01] MEDS ORDERED: IV NORMAL SALINE 250 ML IV ONE (15:01)
[2024-03-01] MEDS ORDERED: IOHEXOL 350 100 ML INFUS..BTL ONE (15:01)
[2024-03-01] MEDS ORDERED: SWABABLE VALVE TRANSFER SET EA MC ONE (15:01)
[2024-03-01] MEDS: RIVAROXABAN 15 MG TABLET PO SCH (18:11)
[2024-03-01] MEDS: CLOPIDOGREL 75 MG TABLET NG SCH (18:12)
[2024-03-02] VITALS (47 sets, daily range): BP systolic 134–198; BP diastolic 50–124; TEMP 98–98.6; O2SAT 94–99
[2024-03-02 05:25] LABS: BASOPHILS % (AUTO) 0.3 % (0.0-2.0); EOSINOPHILS # (AUTO) 0.2 K/uL (0.0-0.7); EOSINOPHILS % (AUTO) 1.6 % (0.0-7.0); HEMATOCRIT 35.6 % (36.7-47.1); HEMOGLOBIN 11.9 g/dL (12.5-16.3); LYMPHOCYTES # (AUTO) 1.5 K/uL (0.8-4.8); LYMPHOCYTES % (AUTO) 12.5 % (20.5-51.5); MEAN CORPUSCULAR HGB CONC 33 g/dL (32.5-36.3); MEAN CORPUSCULAR VOLUME 86.9 fL (73.0-96.2); MONOCYTES # (AUTO) 0.8 K/uL (0.1-1.30); NEUTROPHILS # (AUTO) 9.4 K/uL (1.8-8.9); NEUTROPHILS % (AUTO) 78.6 % (38.5-71.5); PLATELET COUNT (AUTO) 190 K/uL (152-348); RED CELL DISTRIBUTION WIDTH 15.2 % (12.1-16.2)
[2024-03-02 05:34] LABS: DIFFERENTIAL COMMENT 1
[2024-03-02 05:35] LABS: CALCIUM 8.1 mg/dL (8.5-10.1); CARBON DIOXIDE 34 mmol/L (21-32); CHLORIDE 115 mmol/L (98-107); CREATININE 1.3 mg/dL (0.6-1.3); GLUCOSE 145 mg/dL (74-106); POTASSIUM 3.4 mmol/L (3.5-5.1); SODIUM SERUM 155 mmol/L (136-145); UREA NITROGEN, BLOOD 29 mg/dL (7-18)
[2024-03-02] MEDS: POTASSIUM CHLORIDE 20 MEQ POWDER PACKET GT ONE (08:45)
[2024-03-02] MEDS: METOPROLOL TARTRATE 50 MG TABLET GT SCH (08:45)
[2024-03-02] MEDS ORDERED: ASPIRIN 81 MG TAB.CHEW GT SCH (09:00)
[2024-03-02] MEDS: IV D5W 1000ML 1,000 ML IV ONE (09:16)
[2024-03-02] MEDS: VANCOMYCIN IV 1,000 MG in IV DEXTROSE 5% 250 ML IV ONE (12:30)
[2024-03-02] MEDS: MAGNESIUM HYDROXIDE 30 ML LIQUID UDC PO ONE (12:40)
[2024-03-03] VITALS (31 sets, daily range): BP systolic 124–175; BP diastolic 55–89; TEMP 98.1–101.5; O2SAT 95–100
[2024-03-03 05:43] LABS: BASOPHILS # (AUTO) 0.1 K/UL (0.0-0.2); BASOPHILS % (AUTO) 0.6 % (0.0-2.0); EOSINOPHILS # (AUTO) 0.2 K/uL (0.0-0.7); EOSINOPHILS % (AUTO) 1.4 % (0.0-7.0); LYMPHOCYTES % (AUTO) 13.5 % (20.5-51.5); MEAN CORPUSCULAR HGB CONC 33 g/dL (32.5-36.3); MONOCYTES # (AUTO) 1.2 K/uL (0.1-1.30); MONOCYTES % (AUTO) 8.1 % (0.0-11.0); NEUTROPHILS # (AUTO) 11.1 K/uL (1.8-8.9); NEUTROPHILS % (AUTO) 76.4 % (38.5-71.5); PLATELET COUNT (AUTO) 198 K/uL (152-348); RED BLOOD CELL COUNT(AUTO) 4.14 MIL/uL (4.06-5.63); RED CELL DISTRIBUTION WIDTH 15.1 % (12.1-16.2); WHITE BLOOD COUNT (AUTO) 14.5 K/uL (3.6-10.2)
[2024-03-03 05:46] LABS: DIFFERENTIAL COMMENT 1
[2024-03-03 05:54] LABS: CALCIUM 7.9 mg/dL (8.5-10.1); CREATININE 1.3 mg/dL (0.6-1.3); POTASSIUM 3.9 mmol/L (3.5-5.1)
[2024-03-03] MEDS: PANTOPRAZOLE ORAL SUSPENSION 40 MG SUSPDR.PKT GT SCH (06:04)
[2024-03-03] MEDS ORDERED: VANCOMYCIN IV 1,250 MG in IV DEXTROSE 5% 250 ML IV ONE (08:00)
[2024-03-03] MEDS: VANCOMYCIN HCL 1,500 MG in IV DEXTROSE 5% 500 ML IV ONE (09:22)
[2024-03-03] MEDS: IV D5W 1000ML 1,000 ML IV ONE (10:00)
[2024-03-03] MEDS ORDERED: VANCOMYCIN HCL 1,500 MG in IV DEXTROSE 5% 500 ML IV ONE (13:00)
[2024-03-03] MEDS: ACETAMINOPHEN 650 MG/20.3 ML LIQUID UDC GT PRN (20:35)
[2024-03-04] VITALS (31 sets, daily range): BP systolic 124–164; BP diastolic 56–121; TEMP 99–100.5; O2SAT 91–100
[2024-03-04 04:50] LABS: BASOPHILS # (AUTO) 0.1 K/UL (0.0-0.2); EOSINOPHILS # (AUTO) 0.4 K/uL (0.0-0.7); EOSINOPHILS % (AUTO) 2.7 % (0.0-7.0); HEMATOCRIT 36.2 % (36.7-47.1); HEMOGLOBIN 12.1 g/dL (12.5-16.3); LYMPHOCYTES # (AUTO) 2.1 K/uL (0.8-4.8); LYMPHOCYTES % (AUTO) 14.2 % (20.5-51.5); MEAN CORPUSCULAR HEMOGLOBIN 28.7 uug (23.8-33.4); MEAN CORPUSCULAR HGB CONC 33 g/dL (32.5-36.3); MEAN CORPUSCULAR VOLUME 86.1 fL (73.0-96.2); NEUTROPHILS % (AUTO) 75.1 % (38.5-71.5); PLATELET COUNT (AUTO) 217 K/uL (152-348); RED BLOOD CELL COUNT(AUTO) 4.21 MIL/uL (4.06-5.63); WHITE BLOOD COUNT (AUTO) 14.6 K/uL (3.6-10.2)
[2024-03-04 04:53] LABS: DIFFERENTIAL COMMENT 1
[2024-03-04 05:06] LABS: CALCIUM 7.7 mg/dL (8.5-10.1); CARBON DIOXIDE 30 mmol/L (21-32); CHLORIDE 110 mmol/L (98-107); CREATININE 1.3 mg/dL (0.6-1.3); GLUCOSE 139 mg/dL (74-106); POTASSIUM 3.5 mmol/L (3.5-5.1); SODIUM SERUM 147 mmol/L (136-145); UREA NITROGEN, BLOOD 35 mg/dL (7-18)
[2024-03-04 05:11] LABS: MAGNESIUM 2.2 mg/dL (1.8-2.4); VANCOMYCIN,RANDOM 18.1 ug/mL (20.0-30.0)
[2024-03-04] MEDS: POTASSIUM CHLORIDE 20 MEQ POWDER PACKET NG ONE (07:45)
[2024-03-04] MEDS: VANCOMYCIN IV 1,250 MG in IV DEXTROSE 5% 250 ML IV ONE (08:56)
[2024-03-04] MEDS ORDERED: ONDANSETRON 4 MG/2 ML VIAL IV PRN (11:30)
[2024-03-04 12:12] LABS: *BILIRUBIN,URIN NEGATIVE (NEGATIVE); *CLARITY,URINE CLEAR (CLEAR); *COLOR,URINE YELLOW (YELLOW); *KETONES,URINE NEGATIVE (NEGATIVE); *PROTEIN,URINE 2+ (NEGATIVE); *UROBILINOGEN,URINE 0.2 E.U./dl (NORMAL); LEUKOCYTE ESTERASE ,URINE TRACE (NEGATIVE); NITRITE, URINE NEGATIVE (NEGATIVE); UGLUCOSE NEGATIVE (NEGATIVE)
[2024-03-04 12:31] LABS: *BLOOD, URINE TRACE (NEGATIVE)
[2024-03-04 12:58] LABS: BACTERIA,URINE FEW /HPF (NONE SEEN); RBC,URINE 0-3 /HPF (0-3); SQUAMOUS EPITHELIAL CELL,UR MODERATE /HPF (NONE SEEN)
[2024-03-05] VITALS (39 sets, daily range): BP systolic 106–172; BP diastolic 41–113; TEMP 97.5–100.6; O2SAT 91–99
[2024-03-05 05:17] LABS: BASOPHILS # (AUTO) 0.1 K/UL (0.0-0.2); BASOPHILS % (AUTO) 0.5 % (0.0-2.0); EOSINOPHILS # (AUTO) 0.3 K/uL (0.0-0.7); EOSINOPHILS % (AUTO) 2.5 % (0.0-7.0); HEMATOCRIT 35.8 % (36.7-47.1); LYMPHOCYTES # (AUTO) 1.3 K/uL (0.8-4.8); LYMPHOCYTES % (AUTO) 9.4 % (20.5-51.5); MEAN CORPUSCULAR HEMOGLOBIN 29.2 uug (23.8-33.4); MEAN CORPUSCULAR HGB CONC 34 g/dL (32.5-36.3); MEAN CORPUSCULAR VOLUME 86.8 fL (73.0-96.2); MONOCYTES # (AUTO) 0.9 K/uL (0.1-1.30); MONOCYTES % (AUTO) 6.7 % (0.0-11.0); NEUTROPHILS # (AUTO) 11.3 K/uL (1.8-8.9); NEUTROPHILS % (AUTO) 80.9 % (38.5-71.5); PLATELET COUNT (AUTO) 222 K/uL (152-348); RED BLOOD CELL COUNT(AUTO) 4.13 MIL/uL (4.06-5.63); RED CELL DISTRIBUTION WIDTH 14.8 % (12.1-16.2)
[2024-03-05 05:30] LABS: CARBON DIOXIDE 30 mmol/L (21-32); CHLORIDE 111 mmol/L (98-107); CREATININE 1.3 mg/dL (0.6-1.3); GLUCOSE 131 mg/dL (74-106); POTASSIUM 3.7 mmol/L (3.5-5.1); SODIUM SERUM 146 mmol/L (136-145); UREA NITROGEN, BLOOD 35 mg/dL (7-18)
[2024-03-05 05:31] LABS: DIFFERENTIAL COMMENT 1
[2024-03-05 05:35] LABS: MAGNESIUM 2.2 mg/dL (1.8-2.4); PHOSPHOROUS 3.7 mg/dL (2.5-4.9); VANCOMYCIN,RANDOM 20.5 ug/mL (20.0-30.0)
[2024-03-05] MEDS ORDERED: METOPROLOL TARTRATE 5 MG/5 ML VIAL IVP PRN (09:15)
[2024-03-05] MEDS: IV D5W 1000ML 1,000 ML IV SCH (11:08)
[2024-03-05] MEDS ORDERED: FLUCONAZOLE 200 MG/NS 100ML IV 200 MG in PREMIXED 1 EACH IV SCH (11:15)
[2024-03-05] MEDS: MICAFUNGIN SODIUM 100 MG in IV NORMAL SALINE 100 ML IV SCH (13:25)
[2024-03-05] MEDS ORDERED: MEROPENEM 1 G in IV NORMAL SALINE 100 ML IV SCH (14:00)
[2024-03-05] MEDS: MEROPENEM 1 G in IV NORMAL SALINE 100 ML IV SCH (14:18)
[2024-03-05 17:47] LABS: *BILIRUBIN,URIN NEGATIVE (NEGATIVE); *CLARITY,URINE CLEAR (CLEAR); *COLOR,URINE YELLOW (YELLOW); *KETONES,URINE NEGATIVE (NEGATIVE); *PROTEIN,URINE 1+ (NEGATIVE); *UROBILINOGEN,URINE 0.2 E.U./dl (NORMAL); LEUKOCYTE ESTERASE ,URINE TRACE (NEGATIVE); NITRITE, URINE NEGATIVE (NEGATIVE); PH,URINE 5.5 (5.0-8.0); UGLUCOSE NEGATIVE (NEGATIVE)
[2024-03-05 18:02] LABS: *BLOOD, URINE TRACE (NEGATIVE)
[2024-03-05 18:27] LABS: BACTERIA,URINE MODERATE /HPF (NONE SEEN); SQUAMOUS EPITHELIAL CELL,UR NONE SEEN /HPF (NONE SEEN); WBC,URINE 80-100 /HPF (0-3)
[2024-03-06] VITALS (44 sets, daily range): BP systolic 122–181; BP diastolic 48–139; TEMP 97.6–99; O2SAT 92–100
[2024-03-06 05:21] LABS: BASOPHILS # (AUTO) 0.1 K/UL (0.0-0.2); BASOPHILS % (AUTO) 0.9 % (0.0-2.0); EOSINOPHILS # (AUTO) 0.3 K/uL (0.0-0.7); EOSINOPHILS % (AUTO) 3.1 % (0.0-7.0); HEMATOCRIT 33.9 % (36.7-47.1); HEMOGLOBIN 11.4 g/dL (12.5-16.3); LYMPHOCYTES # (AUTO) 1.5 K/uL (0.8-4.8); LYMPHOCYTES % (AUTO) 13.4 % (20.5-51.5); MEAN CORPUSCULAR HEMOGLOBIN 29.1 uug (23.8-33.4); MEAN CORPUSCULAR HGB CONC 34 g/dL (32.5-36.3); MEAN CORPUSCULAR VOLUME 86.7 fL (73.0-96.2); MONOCYTES # (AUTO) 0.8 K/uL (0.1-1.30); MONOCYTES % (AUTO) 7.8 % (0.0-11.0); NEUTROPHILS # (AUTO) 8.1 K/uL (1.8-8.9); NEUTROPHILS % (AUTO) 74.8 % (38.5-71.5); PLATELET COUNT (AUTO) 221 K/uL (152-348); RED BLOOD CELL COUNT(AUTO) 3.91 MIL/uL (4.06-5.63); RED CELL DISTRIBUTION WIDTH 14.6 % (12.1-16.2); WHITE BLOOD COUNT (AUTO) 10.8 K/uL (3.6-10.2)
[2024-03-06 05:28] LABS: CARBON DIOXIDE 31 mmol/L (21-32); CHLORIDE 110 mmol/L (98-107); CREATININE 1.4 mg/dL (0.6-1.3); GLUCOSE 114 mg/dL (74-106); POTASSIUM 3.6 mmol/L (3.5-5.1); SODIUM SERUM 147 mmol/L (136-145); UREA NITROGEN, BLOOD 34 mg/dL (7-18)
[2024-03-06 05:36] LABS: MAGNESIUM 2.4 mg/dL (1.8-2.4); PHOSPHOROUS 3.7 mg/dL (2.5-4.9); VANCOMYCIN,RANDOM 14.1 ug/mL (20.0-30.0)
[2024-03-06 05:38] LABS: DIFFERENTIAL COMMENT 1
[2024-03-06] MEDS: VANCOMYCIN IV 1,250 MG in IV DEXTROSE 5% 250 ML IV ONE (08:49)
[2024-03-06] MEDS: PANTOPRAZOLE SODIUM 40 MG VIAL IV SCH (08:50)
[2024-03-06] MEDS: DIGOXIN 500 MCG/2 ML AMP IV SCH (08:50)
[2024-03-06] MEDS ORDERED: ENOXAPARIN SODIUM 60 MG/0.6 ML DISP.SYRIN SQ SCH ×2 (09:00→09:03)
[2024-03-06 09:59] LABS: ALBUMIN 2.2 g/dL (3.4-5.0); BILIRUBIN,DIRECT 0.1 mg/dL (0.0-0.2); BILIRUBIN,TOTAL 0.7 mg/dL (0.2-1.0)
[2024-03-06] MEDS: ENOXAPARIN SODIUM 120 MG/0.8 ML SYRINGE SQ SCH (10:28)
[2024-03-06] MEDS: MEROPENEM 1 G in IV NORMAL SALINE 100 ML IV SCH (14:26)
[2024-03-06] MEDS: ASPIRIN 300 MG RECTAL SUPP RC SCH (16:33)
[2024-03-07] VITALS (46 sets, daily range): BP systolic 126–190; BP diastolic 50–136; TEMP 97.6–98.6; O2SAT 94–100
[2024-03-07 05:30] LABS: BASOPHILS # (AUTO) 0.1 K/UL (0.0-0.2); BASOPHILS % (AUTO) 1.2 % (0.0-2.0); EOSINOPHILS # (AUTO) 0.3 K/uL (0.0-0.7); EOSINOPHILS % (AUTO) 4.2 % (0.0-7.0); HEMATOCRIT 34.2 % (36.7-47.1); HEMOGLOBIN 11.5 g/dL (12.5-16.3); LYMPHOCYTES # (AUTO) 1.2 K/uL (0.8-4.8); LYMPHOCYTES % (AUTO) 15.6 % (20.5-51.5); MEAN CORPUSCULAR HEMOGLOBIN 29.2 uug (23.8-33.4); MEAN CORPUSCULAR HGB CONC 34 g/dL (32.5-36.3); MEAN CORPUSCULAR VOLUME 87.1 fL (73.0-96.2); MONOCYTES # (AUTO) 0.7 K/uL (0.1-1.30); MONOCYTES % (AUTO) 8.7 % (0.0-11.0); NEUTROPHILS # (AUTO) 5.6 K/uL (1.8-8.9); NEUTROPHILS % (AUTO) 70.3 % (38.5-71.5); PLATELET COUNT (AUTO) 230 K/uL (152-348); RED BLOOD CELL COUNT(AUTO) 3.92 MIL/uL (4.06-5.63); RED CELL DISTRIBUTION WIDTH 14.4 % (12.1-16.2); WHITE BLOOD COUNT (AUTO) 7.9 K/uL (3.6-10.2)
[2024-03-07 05:40] LABS: CALCIUM 8.2 mg/dL (8.5-10.1); CREATININE 1.3 mg/dL (0.6-1.3); MAGNESIUM 2.3 mg/dL (1.8-2.4); PHOSPHOROUS 3.4 mg/dL (2.5-4.9); POTASSIUM 3.4 mmol/L (3.5-5.1); VANCOMYCIN,RANDOM 19.1 ug/mL (20.0-30.0)
[2024-03-07 06:12] LABS: DIFFERENTIAL COMMENT 1
[2024-03-07] MEDS: POTASSIUM CHLORIDE 50 ML IV SCH (09:18)
[2024-03-07] MEDS ORDERED: VANCOMYCIN IV 500 MG in IV DEXTROSE 5% 100 ML IV ONE (18:00)
[2024-03-08] VITALS (30 sets, daily range): BP systolic 129–171; BP diastolic 46–75; TEMP 97.2–98.6; O2SAT 91–100
[2024-03-08 05:00] LABS: BASOPHILS # (AUTO) 0.2 K/UL (0.0-0.2); BASOPHILS % (AUTO) 2.9 % (0.0-2.0); EOSINOPHILS # (AUTO) 0.2 K/uL (0.0-0.7); EOSINOPHILS % (AUTO) 3.3 % (0.0-7.0); HEMATOCRIT 31.2 % (36.7-47.1); HEMOGLOBIN 10.6 g/dL (12.5-16.3); LYMPHOCYTES # (AUTO) 1.4 K/uL (0.8-4.8); LYMPHOCYTES % (AUTO) 20.2 % (20.5-51.5); MEAN CORPUSCULAR HEMOGLOBIN 29.1 uug (23.8-33.4); MEAN CORPUSCULAR HGB CONC 34 g/dL (32.5-36.3); MEAN CORPUSCULAR VOLUME 85.7 fL (73.0-96.2); MONOCYTES # (AUTO) 0.5 K/uL (0.1-1.30); MONOCYTES % (AUTO) 7.3 % (0.0-11.0); NEUTROPHILS # (AUTO) 4.6 K/uL (1.8-8.9); NEUTROPHILS % (AUTO) 66.3 % (38.5-71.5); PLATELET COUNT (AUTO) 248 K/uL (152-348); RED BLOOD CELL COUNT(AUTO) 3.64 MIL/uL (4.06-5.63); RED CELL DISTRIBUTION WIDTH 14.2 % (12.1-16.2); WHITE BLOOD COUNT (AUTO) 6.9 K/uL (3.6-10.2)
[2024-03-08 05:46] LABS: DIFFERENTIAL COMMENT 1
[2024-03-08 05:55] LABS: CARBON DIOXIDE 31 mmol/L (21-32); CHLORIDE 109 mmol/L (98-107); CREATININE 1.2 mg/dL (0.6-1.3); GLUCOSE 99 mg/dL (74-106); MAGNESIUM 2.1 mg/dL (1.8-2.4); PHOSPHOROUS 2.8 mg/dL (2.5-4.9); POTASSIUM 3.4 mmol/L (3.5-5.1); SODIUM SERUM 146 mmol/L (136-145); UREA NITROGEN, BLOOD 22 mg/dL (7-18)
[2024-03-08] MEDS: POTASSIUM CHLORIDE 50 ML IV SCH (09:38)
[2024-03-08] MEDS ORDERED: ACETAMINOPHEN 325 MG TABLET PO PRN (21:15)
[2024-03-09] VITALS (14 sets, daily range): BP systolic 101–160; BP diastolic 53–61; TEMP 97.5–98.8; O2SAT 92–99
[2024-03-09] MEDS: hydrALAZINE HCL 20 MG/1 ML VIAL IV PRN (00:55)
[2024-03-09 07:45] LABS: BASOPHILS # (AUTO) 0.1 K/UL (0.0-0.2); BASOPHILS % (AUTO) 1.9 % (0.0-2.0); EOSINOPHILS # (AUTO) 0.4 K/uL (0.0-0.7); EOSINOPHILS % (AUTO) 4.8 % (0.0-7.0); HEMATOCRIT 33.4 % (36.7-47.1); HEMOGLOBIN 11.2 g/dL (12.5-16.3); LYMPHOCYTES # (AUTO) 1.7 K/uL (0.8-4.8); LYMPHOCYTES % (AUTO) 22.3 % (20.5-51.5); MEAN CORPUSCULAR HEMOGLOBIN 29.2 uug (23.8-33.4); MEAN CORPUSCULAR HGB CONC 34 g/dL (32.5-36.3); MEAN CORPUSCULAR VOLUME 86.8 fL (73.0-96.2); MONOCYTES # (AUTO) 0.7 K/uL (0.1-1.30); MONOCYTES % (AUTO) 9.4 % (0.0-11.0); NEUTROPHILS # (AUTO) 4.7 K/uL (1.8-8.9); NEUTROPHILS % (AUTO) 61.6 % (38.5-71.5); PLATELET COUNT (AUTO) 277 K/uL (152-348); RED BLOOD CELL COUNT(AUTO) 3.84 MIL/uL (4.06-5.63); RED CELL DISTRIBUTION WIDTH 14.3 % (12.1-16.2); WHITE BLOOD COUNT (AUTO) 7.7 K/uL (3.6-10.2)
[2024-03-09 07:53] LABS: DIFFERENTIAL COMMENT 1
[2024-03-09 07:55] LABS: CALCIUM 8.1 mg/dL (8.5-10.1); CREATININE 1.1 mg/dL (0.6-1.3); MAGNESIUM 2.1 mg/dL (1.8-2.4); PHOSPHOROUS 2.3 mg/dL (2.5-4.9); POTASSIUM 3.6 mmol/L (3.5-5.1)
[2024-03-09] MEDS: CLOPIDOGREL 75 MG TABLET PO SCH (08:12)
[2024-03-09] MEDS: METOPROLOL TARTRATE 50 MG TABLET PO SCH (08:12)
[2024-03-09] MEDS: DIGOXIN 125 MCG TABLET PO SCH (08:13)
[2024-03-09] MEDS ORDERED: DIGOXIN 125 MCG TABLET PO SCH (09:00)
[2024-03-09] MEDS: POTASSIUM PHOSPHATE MM 15 MMOL in IV NORMAL SALINE 250 ML IV ONE (09:27)
[2024-03-09] MEDS: RIVAROXABAN 15 MG TABLET PO SCH (17:07)
[2024-03-09] MEDS: ALBUTEROL SULFATE 1.25 MG/3 ML NEBU NEB SCH (21:09)
[2024-03-10] VITALS (15 sets, daily range): BP systolic 129–150; BP diastolic 53–76; TEMP 97.5–98.9; O2SAT 92–99
[2024-03-11] VITALS (15 sets, daily range): BP systolic 107–143; BP diastolic 44–61; TEMP 97.8–98.4; O2SAT 92–99
[2024-03-11] MEDS: PANTOPRAZOLE ORAL SUSPENSION 40 MG SUSPDR.PKT PO SCH (06:08)
[2024-03-11 07:28] LABS: BASOPHILS # (AUTO) 0.1 K/UL (0.0-0.2); BASOPHILS % (AUTO) 1.2 % (0.0-2.0); EOSINOPHILS # (AUTO) 0.3 K/uL (0.0-0.7); EOSINOPHILS % (AUTO) 4.5 % (0.0-7.0); HEMATOCRIT 34.5 % (36.7-47.1); HEMOGLOBIN 11.6 g/dL (12.5-16.3); LYMPHOCYTES # (AUTO) 1.9 K/uL (0.8-4.8); LYMPHOCYTES % (AUTO) 25.5 % (20.5-51.5); MEAN CORPUSCULAR HGB CONC 34 g/dL (32.5-36.3); MEAN CORPUSCULAR VOLUME 86.3 fL (73.0-96.2); MONOCYTES # (AUTO) 0.6 K/uL (0.1-1.30); MONOCYTES % (AUTO) 8.4 % (0.0-11.0); NEUTROPHILS # (AUTO) 4.6 K/uL (1.8-8.9); NEUTROPHILS % (AUTO) 60.4 % (38.5-71.5); PLATELET COUNT (AUTO) 284 K/uL (152-348); RED CELL DISTRIBUTION WIDTH 14.6 % (12.1-16.2); WHITE BLOOD COUNT (AUTO) 7.6 K/uL (3.6-10.2)
[2024-03-11 07:31] LABS: DIFFERENTIAL COMMENT 1
[2024-03-11 07:56] LABS: ALANINE AMINOTRANSFERASE 96 U/L (16-63); ALBUMIN 2.2 g/dL (3.4-5.0); ALKALINE PHOSPHATASE 80 U/L (50-136); ASPARTATE AMINOTRANSFERASE 39 U/L (15-37); BILIRUBIN,TOTAL 0.5 mg/dL (0.2-1.0); CALCIUM 8.5 mg/dL (8.5-10.1); CARBON DIOXIDE 30 mmol/L (21-32); CHLORIDE 105 mmol/L (98-107); GLUCOSE 102 mg/dL (74-106); MAGNESIUM 2.1 mg/dL (1.8-2.4); POTASSIUM 3.6 mmol/L (3.5-5.1); SODIUM SERUM 141 mmol/L (136-145); TOTAL PROTEIN, SERUM 5.8 g/dL (6.4-8.2); UREA NITROGEN, BLOOD 21 mg/dL (7-18)
[2024-03-11] MEDS: POTASSIUM CHLORIDE 50 ML IV SCH (11:25)
[2024-03-12] VITALS (15 sets, daily range): BP systolic 107–179; BP diastolic 41–85; TEMP 97.8–98.4; O2SAT 92–98
[2024-03-12 06:44] LABS: BASOPHILS # (AUTO) 0.1 K/UL (0.0-0.2); BASOPHILS % (AUTO) 0.8 % (0.0-2.0); EOSINOPHILS # (AUTO) 0.4 K/uL (0.0-0.7); EOSINOPHILS % (AUTO) 3.5 % (0.0-7.0); HEMATOCRIT 37.6 % (36.7-47.1); HEMOGLOBIN 12.7 g/dL (12.5-16.3); LYMPHOCYTES # (AUTO) 2.3 K/uL (0.8-4.8); LYMPHOCYTES % (AUTO) 20.6 % (20.5-51.5); MEAN CORPUSCULAR HEMOGLOBIN 28.8 uug (23.8-33.4); MEAN CORPUSCULAR HGB CONC 34 g/dL (32.5-36.3); MEAN CORPUSCULAR VOLUME 85.5 fL (73.0-96.2); MONOCYTES # (AUTO) 0.8 K/uL (0.1-1.30); MONOCYTES % (AUTO) 6.9 % (0.0-11.0); NEUTROPHILS # (AUTO) 7.5 K/uL (1.8-8.9); NEUTROPHILS % (AUTO) 68.2 % (38.5-71.5); PLATELET COUNT (AUTO) 332 K/uL (152-348); RED BLOOD CELL COUNT(AUTO) 4.39 MIL/uL (4.06-5.63); RED CELL DISTRIBUTION WIDTH 14.1 % (12.1-16.2)
[2024-03-12 06:50] LABS: DIFFERENTIAL COMMENT 1
[2024-03-12 06:51] LABS: CREATININE 1.1 mg/dL (0.6-1.3); MAGNESIUM 2.1 mg/dL (1.8-2.4); PHOSPHOROUS 2.7 mg/dL (2.5-4.9); POTASSIUM 3.6 mmol/L (3.5-5.1)
[2024-03-13] VITALS (12 sets, daily range): BP systolic 125–145; BP diastolic 50–65; TEMP 97.6–98.9; O2SAT 95–98
[2024-03-13 06:14] LABS: BASOPHILS # (AUTO) 0.1 K/UL (0.0-0.2); EOSINOPHILS # (AUTO) 0.3 K/uL (0.0-0.7); EOSINOPHILS % (AUTO) 4.1 % (0.0-7.0); HEMATOCRIT 34.4 % (36.7-47.1); HEMOGLOBIN 11.6 g/dL (12.5-16.3); LYMPHOCYTES # (AUTO) 2.1 K/uL (0.8-4.8); MEAN CORPUSCULAR HEMOGLOBIN 29.1 uug (23.8-33.4); MEAN CORPUSCULAR HGB CONC 34 g/dL (32.5-36.3); MEAN CORPUSCULAR VOLUME 86.5 fL (73.0-96.2); MONOCYTES # (AUTO) 0.8 K/uL (0.1-1.30); MONOCYTES % (AUTO) 9.2 % (0.0-11.0); NEUTROPHILS # (AUTO) 5.1 K/uL (1.8-8.9); NEUTROPHILS % (AUTO) 60.7 % (38.5-71.5); PLATELET COUNT (AUTO) 279 K/uL (152-348); RED BLOOD CELL COUNT(AUTO) 3.98 MIL/uL (4.06-5.63); RED CELL DISTRIBUTION WIDTH 14.6 % (12.1-16.2); WHITE BLOOD COUNT (AUTO) 8.4 K/uL (3.6-10.2)
[2024-03-13 06:21] LABS: DIFFERENTIAL COMMENT 1
[2024-03-13 06:27] LABS: ALBUMIN 2.3 g/dL (3.4-5.0); BILIRUBIN,TOTAL 0.5 mg/dL (0.2-1.0); CALCIUM 8.1 mg/dL (8.5-10.1); MAGNESIUM 2.2 mg/dL (1.8-2.4); PHOSPHOROUS 3.3 mg/dL (2.5-4.9); POTASSIUM 3.6 mmol/L (3.5-5.1); TOTAL PROTEIN, SERUM 5.9 g/dL (6.4-8.2)
[2024-03-14] VITALS (13 sets, daily range): BP systolic 130–141; BP diastolic 50–70; TEMP 97.4–99.2; O2SAT 95–99
[2024-03-14 07:27] LABS: BASOPHILS # (AUTO) 0.1 K/UL (0.0-0.2); BASOPHILS % (AUTO) 1.1 % (0.0-2.0); EOSINOPHILS # (AUTO) 0.4 K/uL (0.0-0.7); EOSINOPHILS % (AUTO) 4.5 % (0.0-7.0); HEMATOCRIT 33.1 % (36.7-47.1); LYMPHOCYTES % (AUTO) 22.6 % (20.5-51.5); MEAN CORPUSCULAR HEMOGLOBIN 28.6 uug (23.8-33.4); MEAN CORPUSCULAR HGB CONC 33 g/dL (32.5-36.3); MEAN CORPUSCULAR VOLUME 86.2 fL (73.0-96.2); MONOCYTES # (AUTO) 0.8 K/uL (0.1-1.30); MONOCYTES % (AUTO) 8.8 % (0.0-11.0); NEUTROPHILS # (AUTO) 5.6 K/uL (1.8-8.9); PLATELET COUNT (AUTO) 306 K/uL (152-348); RED BLOOD CELL COUNT(AUTO) 3.84 MIL/uL (4.06-5.63); RED CELL DISTRIBUTION WIDTH 14.6 % (12.1-16.2); WHITE BLOOD COUNT (AUTO) 8.8 K/uL (3.6-10.2)
[2024-03-14 07:30] LABS: CALCIUM 8.3 mg/dL (8.5-10.1); CREATININE 1.2 mg/dL (0.6-1.3); POTASSIUM 3.8 mmol/L (3.5-5.1)
[2024-03-14 07:54] LABS: DIFFERENTIAL COMMENT 1
[2024-03-14] MEDS: MUPIROCIN 2% OINT 22 GM TUBE NS SCH (21:00)
[2024-03-14] MEDS ORDERED: MUPIROCIN 2% OINT 22 GM TUBE ONE (23:24)
[2024-03-15] VITALS (13 sets, daily range): BP systolic 130–163; BP diastolic 47–63; TEMP 97.6–98.2; O2SAT 94–100
[2024-03-16] VITALS (10 sets, daily range): BP systolic 128–162; BP diastolic 56–87; TEMP 97.3–97.9; O2SAT 93–99
[2024-03-16 06:54] LABS: BASOPHILS # (AUTO) 0.1 K/UL (0.0-0.2); BASOPHILS % (AUTO) 1.2 % (0.0-2.0); EOSINOPHILS # (AUTO) 0.3 K/uL (0.0-0.7); HEMOGLOBIN 11.2 g/dL (12.5-16.3); LYMPHOCYTES # (AUTO) 1.9 K/uL (0.8-4.8); LYMPHOCYTES % (AUTO) 23.9 % (20.5-51.5); MEAN CORPUSCULAR HEMOGLOBIN 28.4 uug (23.8-33.4); MEAN CORPUSCULAR HGB CONC 33 g/dL (32.5-36.3); MEAN CORPUSCULAR VOLUME 86.1 fL (73.0-96.2); MONOCYTES # (AUTO) 0.5 K/uL (0.1-1.30); MONOCYTES % (AUTO) 6.4 % (0.0-11.0); NEUTROPHILS # (AUTO) 5.1 K/uL (1.8-8.9); NEUTROPHILS % (AUTO) 64.5 % (38.5-71.5); PLATELET COUNT (AUTO) 276 K/uL (152-348); RED BLOOD CELL COUNT(AUTO) 3.95 MIL/uL (4.06-5.63)
[2024-03-16 07:00] LABS: DIFFERENTIAL COMMENT 1
[2024-03-16 07:01] LABS: CALCIUM 8.9 mg/dL (8.5-10.1); CREATININE 1.2 mg/dL (0.6-1.3); MAGNESIUM 2.1 mg/dL (1.8-2.4); PHOSPHOROUS 3.9 mg/dL (2.5-4.9); POTASSIUM 3.5 mmol/L (3.5-5.1)
[2024-03-16 08:31] LABS: ABG BASE EXCESS 0.5 mmol/L (-2.0-2.0); ABG HCO3 23.8 mmol/L (22.0-26.0); ABG PCO2 33.8 mmHg (35.0-48.0); ABG PH 7.465 (7.340-7.440); ABG PO2 74.6 mmHg (75.0-100.0); ABG SITE LEFT RADIAL; ABG TOTAL HEMOGLOBIN 11.6 G/dL (14.0-18.0); AaDO2 95.8 mmHg; COHb 0.4 % (0.0-3.9); MetHb 0.3 % (0.0-1.5); O2Hb 93.3 % (94.0-97.0)
[2024-03-17] VITALS (11 sets, daily range): BP systolic 151–168; BP diastolic 68–70; TEMP 97.5–97.6; O2SAT 95–99
[2024-03-18] VITALS (13 sets, daily range): BP systolic 122–160; BP diastolic 56–69; TEMP 97.7–98.5; O2SAT 95–99
[2024-03-18 06:49] LABS: ALANINE AMINOTRANSFERASE 28 U/L (16-63); ALBUMIN 2.5 g/dL (3.4-5.0); ALKALINE PHOSPHATASE 91 U/L (50-136); ASPARTATE AMINOTRANSFERASE 7 U/L (15-37); BILIRUBIN,TOTAL 0.5 mg/dL (0.2-1.0); CALCIUM 8.4 mg/dL (8.5-10.1); CARBON DIOXIDE 27 mmol/L (21-32); CHLORIDE 107 mmol/L (98-107); CREATININE 1.1 mg/dL (0.6-1.3); GLUCOSE 127 mg/dL (74-106); POTASSIUM 3.7 mmol/L (3.5-5.1); SODIUM SERUM 143 mmol/L (136-145); TOTAL PROTEIN, SERUM 6.4 g/dL (6.4-8.2); UREA NITROGEN, BLOOD 20 mg/dL (7-18)
[2024-03-19] VITALS (14 sets, daily range): BP systolic 140–165; BP diastolic 54–77; TEMP 97.9–98.5; O2SAT 94–100
[2024-03-19 07:27] LABS: BASOPHILS # (AUTO) 0.1 K/UL (0.0-0.2); EOSINOPHILS # (AUTO) 0.4 K/uL (0.0-0.7); EOSINOPHILS % (AUTO) 3.9 % (0.0-7.0); HEMATOCRIT 34.4 % (36.7-47.1); HEMOGLOBIN 11.3 g/dL (12.5-16.3); LYMPHOCYTES # (AUTO) 1.9 K/uL (0.8-4.8); LYMPHOCYTES % (AUTO) 20.5 % (20.5-51.5); MEAN CORPUSCULAR HEMOGLOBIN 28.4 uug (23.8-33.4); MEAN CORPUSCULAR HGB CONC 33 g/dL (32.5-36.3); MEAN CORPUSCULAR VOLUME 86.1 fL (73.0-96.2); MONOCYTES # (AUTO) 0.8 K/uL (0.1-1.30); MONOCYTES % (AUTO) 8.5 % (0.0-11.0); NEUTROPHILS # (AUTO) 6.1 K/uL (1.8-8.9); NEUTROPHILS % (AUTO) 66.1 % (38.5-71.5); PLATELET COUNT (AUTO) 235 K/uL (152-348); RED CELL DISTRIBUTION WIDTH 14.7 % (12.1-16.2); WHITE BLOOD COUNT (AUTO) 9.3 K/uL (3.6-10.2)
[2024-03-19 07:33] LABS: DIFFERENTIAL COMMENT 1
[2024-03-19 07:59] LABS: ALBUMIN 2.5 g/dL (3.4-5.0); BILIRUBIN,TOTAL 0.5 mg/dL (0.2-1.0); CALCIUM 8.7 mg/dL (8.5-10.1); POTASSIUM 3.3 mmol/L (3.5-5.1); TOTAL PROTEIN, SERUM 6.3 g/dL (6.4-8.2)
[2024-03-19] MEDS: POTASSIUM CHLORIDE 20 MEQ POWDER PACKET PO ONE (09:21)
[2024-03-20] VITALS (10 sets, daily range): BP systolic 141–156; BP diastolic 43–62; TEMP 97.6–97.8; O2SAT 95–99
[2024-03-20 07:23] LABS: ALANINE AMINOTRANSFERASE 25 U/L (16-63); ALBUMIN 2.4 g/dL (3.4-5.0); ALKALINE PHOSPHATASE 82 U/L (50-136); ASPARTATE AMINOTRANSFERASE < 5 U/L (15-37); BILIRUBIN,TOTAL 0.4 mg/dL (0.2-1.0); CALCIUM 8.6 mg/dL (8.5-10.1); CARBON DIOXIDE 30 mmol/L (21-32); CHLORIDE 106 mmol/L (98-107); GLUCOSE 98 mg/dL (74-106); POTASSIUM 3.4 mmol/L (3.5-5.1); SODIUM SERUM 144 mmol/L (136-145); TOTAL PROTEIN, SERUM 6.1 g/dL (6.4-8.2); UREA NITROGEN, BLOOD 22 mg/dL (7-18)
[2024-03-20] MEDS ORDERED: IPRATROPIUM BROMIDE 0.5 MG/2.5 ML NEBU NEB PRN (08:15)
[2024-03-20] MEDS ORDERED: ALBUTEROL SULFATE 1.25 MG/3 ML NEBU NEB SCH (08:15)
[2024-03-20] MEDS: POTASSIUM CHLORIDE 20 MEQ POWDER PACKET GT ONE (10:21)
[2024-03-21 00:39] VITALS: O2SAT 97
[2024-03-21 05:32] VITALS: BP 158/59; TEMP 97.8; O2SAT 95
[2024-03-21 08:43] LABS: CALCIUM 8.8 mg/dL (8.5-10.1); POTASSIUM 3.7 mmol/L (3.5-5.1)
[2024-03-21 11:26] VITALS: BP 139/60; TEMP 97.6; O2SAT 95
== END 2024-03-21 13:00 | disposition home health service (06) | DRG 871 ==
LOC: ER 20:06 → TELE3 02-21 00:07 → TELE-TD3 02-21 08:11 → CCU 02-23 20:05 → TELE3 03-08 16:43 → MEDSURG3 03-13 10:05
PROVIDERS: ADMIT Nurse Practitioner Acute Care; ATTEND Internal Medicine
PROC: 5A09357 Assistance with Respiratory Ventilation, Less than 24 Consecutive Hours, Continuous Positive Airway Pressure (ICD-10-PCS; principal; 2024-02-21)
PROC: 05HB33Z Insertion of Infusion Device into Right Basilic Vein, Percutaneous Approach (ICD-10-PCS; 2024-02-21)
PROC: 05HC33Z Insertion of Infusion Device into Left Basilic Vein, Percutaneous Approach (ICD-10-PCS; 2024-03-05)
DX: A41.9 Sepsis, unspecified organism (principal); G93.41 Metabolic encephalopathy; J69.0 Pneumonitis due to inhalation of food and vomit; J96.01 Acute respiratory failure with hypoxia; R65.21 Severe sepsis with septic shock; J96.21 Acute and chronic respiratory failure with hypoxia; J96.22 Acute and chronic respiratory failure with hypercapnia; N17.0 Acute kidney failure with tubular necrosis; I50.31 Acute diastolic (congestive) heart failure; I21.A1 Myocardial infarction type 2; J15.212 Pneumonia due to Methicillin resistant Staphylococcus aureus; N39.0 Urinary tract infection, site not specified; I48.4 Atypical atrial flutter; E44.0 Moderate protein-calorie malnutrition; D68.59 Other primary thrombophilia; E87.0 Hyperosmolality and hypernatremia; I13.0 Hypertensive heart and chronic kidney disease with heart failure and stage 1 through stage 4 chronic kidney disease, or unspecified chronic kidney disease; K56.7 Ileus, unspecified; J98.11 Atelectasis; I65.23 Occlusion and stenosis of bilateral carotid arteries; E83.39 Other disorders of phosphorus metabolism; R54 Age-related physical debility; E66.9 Obesity, unspecified; E78.5 Hyperlipidemia, unspecified; I25.10 Atherosclerotic heart disease of native coronary artery without angina pectoris; J32.2 Chronic ethmoidal sinusitis; E87.6 Hypokalemia; D63.8 Anemia in other chronic diseases classified elsewhere; E88.09 Other disorders of plasma-protein metabolism, not elsewhere classified; I48.0 Paroxysmal atrial fibrillation; F03.90 Unspecified dementia, unspecified severity, without behavioral disturbance, psychotic disturbance, mood disturbance, and anxiety; S30.0XXA Contusion of lower back and pelvis, initial encounter; X58.XXXA Exposure to other specified factors, initial encounter; Y92.89 Other specified places as the place of occurrence of the external cause; N18.9 Chronic kidney disease, unspecified; M89.8X9 Other specified disorders of bone, unspecified site; N40.1 Benign prostatic hyperplasia with lower urinary tract symptoms; R13.10 Dysphagia, unspecified; J98.4 Other disorders of lung; Z79.01 Long term (current) use of anticoagulants; Z74.09 Other reduced mobility; Z95.1 Presence of aortocoronary bypass graft; Z87.440 Personal history of urinary (tract) infections; Z68.34 Body mass index [BMI] 34.0-34.9, adult; Z79.82 Long term (current) use of aspirin; Z79.899 Other long term (current) drug therapy; R04.0 Epistaxis; Z78.1 Physical restraint status
CPT/HCPCS: 36415; 36600; 70030-TC; 70450; 70496; 71045; 71275; 74018; 76770; 82803; 83605; 83735; 84100; 84443; 84484; 84550; 85025; 85610; 87040; 93005; 93307; 94640; 94660; 94664; 94760; A4606; A4663; A6209; A6213; C9113; G0378; J0282; J0360; J0696; J1160; J1650; J1815; J1940; J2060; J2185; J2248; J2358; J2543; J3370; J3371; J3480; J3490; J3590; J7040; J7050; J7060; J7070; J7614; Q9967